=== PATIENT | female | born 1970 | race Caucasian/White ===

== ENCOUNTER 2023-06-20 09:25 | Outpatient (CLI) | payer SELFPAY ==
--- NOTE | 2023-06-19 | IMM_PTH ---
PATIENT: NEHEMIAH WOLFF LOC: [facility] U#:[id number] AGE/SX: 53/F ROOM: RE06/20/[address]: Dr. Maxine Rosas MD : 1970 BED: DIS: 06/20/2023 SPEC #: [id number] RECD: 06/21/23 12:54 STATUS: DANIA REQ #: [id number] EMMANUEL: 06/19/23 00:[address]: Maxine Rosas DEPT: IMMUNOHISTOCHEMISTRY RECD BY: Nayla Villa ENTERED: 06/21/23 13:02 SP TYPE: IMMUNO OTHR DR: April Schuster PA-C Tissues: A - Breast, NOS B - Breast, NOS C - Axillary lymph node, NOS Procedures: CALPONIN-1 (add) CK5-6 (add) CK8 (add) BRIGHT-2 (add) E-CAD (add) HER2 BERNADETTE (add) KI-67 (add) MAMM (add) P53 (add) MI (add) GATA3 (add) P40 (add) ER (initial) PHYSICIAN & [address] [address] SPECIMEN INFORMATION: Tissue Source: A - Right breast mass at 12 o'clock, 7.0 cm from nipple, B - Right breast mass at 12 o'clock, 8.0 cm from nipple, C - Right axillary lymph node Clinical Info: Right breast mass Specimen Number: [id number] A-C CPT code: 80221 x3, 24878 x16, 07045 x8 METHODOLOGY: Deparaffinized sections of prefer/formalin-fixed tissue or PAP/DQ stained slides are incubated with monoclonal/polyclonal antibodies/oligonucleotide probes. Localization is made via biotin free immunoperoxidase method. Appropriate controls are performed and reacted as expected. Results on target cell population are indicated in the following table: RESULTS: ANTIBODY / CLONE RESULT Block A P53 (DO-7) positive, wild type Ki-67 (30-9) positive, 35% CK5-6 (D5 & 1684) negative Calponin-1 (DN976A) negative P40 (BC28) negative E-Cad (ECH-6) positive BRIGHT-2 (SP21) positive CK8 (74cunrB36) positive MORPHOMETRIC ANALYSIS ER (clone 6F11) 90%, strong intensity MI (clone 16/1E2) 0 Her-2Neu (clone CB11) 3+ Block B P53 (DO-7) negative, null pattern Ki-67 (30-9) positive, 35% CK5-6 (D5 & 1684) negative Calponin-1 (CJ566P) negative P40 (BC28) negative E-Cad (ECH-6) positive BRIGHT-2 (SP21) positive, dim CK8 (04xrpnE18) positive MORPHOMETRIC ANALYSIS ER (clone 6F11) 50%, dim intensity MI (clone 16/1E2) 0 Her-2Neu (clone CB11) 3+ Block C ER (6F11) positive MI (1E2) negative CK8 (80fkwiH93) positive Mammaglobin (31A5) negative GATA3 (L50-823) positive The prognostic test for HER2 is performed on formalin-fixed paraffin embedded tissue. A 3+ (positive) staining pattern is defined as intense, homogeneous, complete, circumferential membranous staining in >10% of contiguous tumor cells. A similar weak (2+) staining pattern is interpreted as equivocal. DUANE follow-up testing is recommended for all equivocal cases. Positivity/negativity for ER/MI is reported if > or < 1% of the tumor cells are immuno- reactive, respectively. The ASCO/CAP criteria is used for scoring. Reference: Journal of Clinical Oncology, 2013; 31:4741-3533 & 2010; 16:3082-6216. Ischemic time: Less than one hour. Duration of fixation: 37 Hours; Sample Adequate: Yes. These assays have not been validated on decalcified tissues. Results should be interpreted with caution given the likelihood of false negativity on decalcified specimens or fixation greater than 72 hours. Alternative testing methods (FISH/dualISH for Her2; gene expression for ER) are recommended, if applicable. Please notify the laboratory if additional testing is required. These tests were developed and their performance characteristics determined by [facility]. They may not have been cleared or approved by the [place]. Food and Drug Administration. The FDA has determined that such clearance or approval is not necessary. The above immunohistochemical/dualISH markers are ordered and reviewed by the Pathologist. INTERPRETATION: A. Right breast mass at 12 o'clock, 7.0 cm from nipple, core biopsy: Invasive ductal carcinoma, nuclear grade 2-3/3. Positive for estrogen receptors (favorable prognostic indicator). Negative for progesterone receptors (unfavorable prognostic indicator). Positive for overexpression of TKG3hqb. B. Right breast mass at 12 o'clock, 8.0 cm from nipple, core biopsy: Invasive ductal carcinoma, nuclear grade 2-3/3. Positive for estrogen receptors (favorable prognostic indicator). Negative for progesterone receptors (unfavorable prognostic indicator). Positive for overexpression of GQR7wdq. C. Right axillary lymph node, core biopsy: Metastatic breast carcinoma. AM:pete 06/24/2023
--- NOTE | 2023-06-19 16:00 | BRBX_PTH ---
PATIENT: NEHEMIAH WOLFF LOC: [facility] U#:[id number] AGE/SX: 53/F ROOM: RE06/20/[address]: Dr. Maxine Rosas MD : 1970 BED: DIS: 06/20/2023 SPEC #: [id number] RECD: 06/19/23 16:59 STATUS: DANIA [facility] #: [id number] EMMANUEL: 06/19/23 16:[address]: Maxine Rosas DEPT: SURGICAL PATHOLOGY RECD BY: Candy Mckenzie ENTERED: 06/20/23 13:02 SP TYPE: BREAST BX OTHR DR: April Schuster PA-C Tissues: A - Right breast, NOS B - Right breast, NOS C - Axillary lymph node, NOS Procedures: Surgery Specimen Level IV HEADER OPERATION: Right breast biopsy, right axillary biopsy PRE-OP DIAGNOSIS: TISSUE SUBMITTED: A - Right breast mass 12 o'clock, 7.0 cm from nipple, B - Right breast mass 12 o'clock, 8.0 cm from nipple, C - Right axilla lymph node MICROSCOPIC DIAGNOSIS A. Right breast mass at 12 o'clock, 7.0 cm from nipple, core biopsy: Invasive ductal carcinoma with the follow characteristics: Nuclear grade - 2-3 Maximal length - 9.5 millimeters See comment. B. Right breast mass at 12 o'clock, 8.0 cm from nipple, core biopsy: Invasive ductal carcinoma with the follow characteristics: Nuclear grade - 2-3 Maximal length - 8.0 millimeters See comment. C. Right axillary lymph node, core biopsy: Metastatic breast carcinoma. See comment. AM:pete 06/24/2023 COMMENT A-C. Immunohistochemistry ([id number]) supports the above diagnosis. MICROSCOPIC DESCRIPTION Slides are reviewed. GROSS DESCRIPTION A - Received in fixative is one container labeled with the patient name and designated right breast 12 o'clock. The specimen consists of two cores of light jenkins soft tissue. Each core has an average length of 1.5 cm and average diameter of 0.1 cm. The specimen is totally submitted in one cassette. B - Received in fixative is one container labeled with the patient name and designated right breast mass 12 o'clock. The specimen consists of two cores of light jenkins soft tissue. Each core has an average length of 1.2 cm and average diameter of 0.2 cm. The specimen is totally submitted in one cassette. C - Received in fixative is one container labeled with the patient's name and designated right axilla lymph node. The specimen consists of multiple irregular and elongated fragments of jenkins-yellow soft tissue that in aggregate measure 1.0 x 0.5 x 0.1 cm. The specimen is totally submitted in one cassette. / AM:pete 06/20/2023 TC:0 Ischemic Time: 1 minute Fixation Time: 37 hours CPT: 22789 x3 ADDENDUM ADDENDUM ADDENDUM ADDENDUM ADDENDUM ADDENDUM ADDENDUM ADDENDUM ADDENDUM ADDENDUM ADDENDUM ADDENDUM ADDENDUM ADDENDUM 09/09/2023 09:14 ADDENDUM 09/09/2023 09:14 ADDENDUM 09/09/2023 09:14 ADDENDUM 09/09/2023 09:14 ADDENDUM 09/09/2023 09:14 This addendum is added to incorporate an outside pathology consultation report. The case was examined at [facility] (#[id number]) and the following diagnosis was rendered. A. Right breast mass, 12 o'clock, 7.0 cm from nipple, core biopsy: Invasive ductal carcinoma. B. Right breast mass, 12 o'clock, 8.0 cm from nipple, core biopsy: Invasive ductal carcinoma. C. Right axillary lymph node, core biopsy: Metastatic breast carcinoma, measuring at least 4 mm. Please see complete above mentioned consultation report in EMR
== END 2023-06-20 23:59 | disposition home or self-care (01) ==
LOC: LABSPEC 09:30
PROVIDERS: PCP Family Medicine; Visit Provider Surgery
DX: C50.811 Malignant neoplasm of overlapping sites of right female breast (principal); C77.3 Secondary and unspecified malignant neoplasm of axilla and upper limb lymph nodes
CPT/HCPCS: 88305; 88341; 88342

== ENCOUNTER → 2023-07-02 | Outpatient (CLI) | payer SELFPAY ==
--- NOTE | 2023-07-02 07:25 | MRI_ITS ---
STUDY: BILATERAL BREAST MR WITHOUT AND WITH CONTRAST REASON FOR EXAM: Female, 53 years old. Right breast masses on ultrasound and mammogram. TECHNIQUE: Multi-sequence multi-echo imaging of both breasts was performed with a dedicated breast coil. T1-weighted and T2-weighted images were performed before the administration of contrast. T1-weighted images were also performed after the intravenous 23 cc of Clariscan contrast. COMPARISON: Right ultrasound-guided biopsy images dated June 19, 2023, right breast ultrasound dated June 14, 2023 and bilateral diagnostic mammogram dated June 14, 2023. FINDINGS: RIGHT BREAST: Scattered fibroglandular densities with moderate background enhancement. Extensive area of enhancement in the upper half of the right breast including multiple small masslike areas and significant non--mass enhancement measuring approximately 4.4 cm x 4.3 cm x 5.6 cm. Area of enhancement involves both the upper medial and upper outer quadrants of the right breast. LEFT BREAST: Scattered fibroglandular densities with moderate background enhancement. No abnormal enhancing masses or areas of non-mass enhancement in the left breast. Multiple small enhancing lymph nodes in the right axilla, the largest of which is near the axillary tail and measures approximately 1 cm in widest diameter. Small non-pathologically enlarged lymph nodes of the left axilla No abnormality in the visualized regions of the chest or liver. MRI/Breast Bilateral W/O and W IMPRESSION: Extensive area of enhancement in the upper half of the right breast extending from both the upper medial and upper lateral quadrants. Multiple briskly enhancing lymph nodes in the right axilla as described. No abnormality of the left breast or axilla. CATEGORY: BIRADS Category 6: Known Biopsy-Proven Malignancy - Appropriate Action Should Be Taken. A letter regarding these results will be sent to the patient by the facility within 30 days. Electronically Signed: Abdiel Lawrence MD at 11:38 EST ,
== END | disposition home or self-care (01) ==
PROVIDERS: PCP Family Medicine; Referring Provider Surgery; Visit Provider Surgery
DX: N63.10 Unspecified lump in the right breast, unspecified quadrant (principal)
CPT/HCPCS: 77049; A9575; A4216; C8908

== ENCOUNTER 2023-07-18 07:02 | Day surgery (SDC) | payer SELFPAY ==
--- OUTSIDE RECORDS SUMMARY | 2023-07-18 07:06 | XMS RPT_ITS | CCD ---
Author Name Unknown Address [address] [place] [address] Organization [facility] Care Team Providers Care Car Distributor Name Role Phone Unavailable Primary Care Provider ADELAIDE Blankenship Attending Unavailable ADELAIDE SCHUSTER Primary Care Unavailable ADELAIDE SCHUSTER Admitting Unavailable ISAMAR ANGELA Consulting Unavailable PROVIDER, UNKNOWN Consulting Unavailable Alison GILLIS, Maxine Thomas Unavailable [phone] Adelaide Schuster PA-C Unavailable MAGDIEL REDDING Referring Unavailable RADHA BALDERAS Referring Unavaila ble MAGDIEL REDIDNG Attending Unavailable Medications Current Medications Medication Drug Class(es) Dates Sig (Normalized) Sig (Original) iv contrast (will be provided with radiology test) (1 source) Start: 07-10-2023 End: 07-11-2023 inject 1 dose intravenously once iv contrast (will be provided with radiology test) Indications: Malignant 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 in female, estrogen receptor positive (HCC) (HCC) , HER2-positive carcinoma of breast (HCC) , Encounter for monitoring cardiotoxic drug therapy , 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 If Pt. has a central line or IVAD, may access for administration according to line specific nursing protocol.Once exam is complete flush line and de-access according to line specific nursing protocol in the MR contrast administration guidelines link 1 Each 0 07/10/2023 07/11/2023 Active Completed/Discontinued Medications Medication Drug Class(es) Dates Sig (Normalized) Sig (Original) OTC PRODUCT (1 source) take 2 capsules by m outh once daily OTC PRODUCT Take 2 capsules by mouth once daily. Activated Charcoal 0 Active Problems Problem Classification Problem Date Documented Da te Episodic/Chronic Cancer of breast (4 sources) Overlapping malignant neoplasm of female breast; Translations: [Malignant neoplasm of overlapping sites of right female breast] Onset: 07-10-2023 07-10-2023 Chronic Other aftercare (1 source) Drug therapy finding; Translations: [Encounter for therapeutic drug level monitoring] 07-10-2023 Episodic Other aftercare (1 source) Encounter for therapeutic drug level monitoring; Translations: [Encounter for monitoring cardiotoxic drug therapy] Onset: 07-10-2023 Episodic Other aftercare (1 source) Other termite control representative (current) drug therapy; Translations: [Encounter for monitoring cardiotoxic drug therapy] Onset: 07-10-2023 Episodic Other screening for suspected conditions (not mental disorders or infectious disease) (3 sources) Other abnormal and inconclusive findings on diagnostic imaging of breast; Translations: [Other abnormal and inconclusive findings on diagnostic imaging of breast] Onset: 06-14-2023 Episodic Residual codes; unclassified (1 source) Estrogen receptor positive status [ER+]; Translations: [Malignant 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 in female, estrogen receptor positive (HCC) (HCC)] Onset: 07-10-2023 Episodic Secondary malignancies (1 source) Secondary malignant neoplasm of axillary lymph nodes; Translations: [Secondary and unspecified malignant neoplasm of axilla and upper limb lymph nodes] 07-10-2023 Chronic Secondary malignancies (1 source) Secondary and unspecified malignant neoplasm of axilla and upper limb lymph nodes; Translations: [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)] Onset: 07-10-2023 Chronic Results Test Name Value Interpretation Reference Range Facil ity Vital Signs Date Time Vital Sign Value Performing Clinician Mitesh nolan 07-10-2023 14:44-0500 Body height 164.7 cm Magdiel [employer] Work Phone: [facility] 07-10-2023 14:44-0500 Body temperature 97.7 [degF] Magdiel [employer] DO Work Phone: [facility] 07-10-2023 14:44-0500 Body weight 114.31 kg Magdiel PopUp Work Phone: [facility] 07-10-2023 14:44-0500 Diastolic blood pressure 87 mm[Hg] Magdiel Redding DO Work Phone: [facility] 07-10-2023 14:44-0500 Heart rate 75 /min Magdiel Redding DO Work Phone: [facility] 07-10-2023 14:44-0500 SaO2% (BldA) [Mass fraction] 99 % Magdiel Redding DO Work Phone: [facility] 07-10-2023 14:44-0500 Systolic blood pressure 150 mm[Hg] Magdiel Redding DO Work Phone: [facility] Encounters Encounter Date Encounter Type Care Provider Facility Start: 07-10-2023 End: 07-11-2023 ambulatory Magdiel Redding DO Work Phone: Hematology/Oncology Procedures Date Procedure Procedure Detail Performing Clinician Start: 03-21-2011 SURGICAL PATHOLOGY, CONVERTED Mauricio Trinh MD Work Phone: Start: 07-27-2008 SURGICAL PATHOLOGY, CONVERTED Danilo Han MD Work Phone: Start: 06-29-2008 CYTOLOGY FLASH DRIER OPERATOR, CONVERTED Danilo Han MD Work Phone: Start: 10-02-2005 CYTOLOGY FLASH DRIER OPERATOR, CONVERTED Danilo Han MD Work Phone: Plan of Treatment Date Care Activity Detail Author Start: 07-10-2026 Diabetes Screening Diabetes Screening [facility] Start: 03-22-2023 Influenza vaccination [facility] Start: 07-22-2022 Depression Assessment Depression Assessment [facility] Start: 01-23-2022 Shingrix Vaccine (1 of 2) Shingrix Vaccine (1 of 2) [facility] Start: 01-23-2017 Lipid panel Lipid Screening [facility] Start: 01-23-2017 Screening for malignant neoplasm of colon [facility] Start: 2012 Screening for malignant neoplasm of breast Mammogram Screening [facility] Start: 01-23-2002 Screening for malignant neoplasm of cervix HPV Testing [facility] Start: 01-23-1993 Screening for malignant neoplasm of cervix Pap Testing [facility] Start: 01-23-1991 Urine microalbumin profile DTaP,Tdap,Td Vaccine (1 - Tdap) [facility] Start: 01-23-1990 HIV screening HIV Screening [facility] Start: 1972 Covid-19 Vaccine (#1) Covid-19 Vaccine (#1) [facility] Start: 1972 Hepatitis B Vaccine (1 of 3 - 3-dose series) Hepatitis B Vaccine (1 of 3 - 3-dose series) [facility] End: 07-10-2024 Echocardiography ECHO Cardiology STAT Malignant 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 in female, estrogen receptor positive (HCC) (HCC) HER2-positive carcinoma of breast (HCC) Encounter for monitoring cardiotoxic drug therapy 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 1972 Unknown [id number] Social History Date Type Detail Facility Tobacco smoking stat [facility] Tobacco smoking consumption unknown [facility] Start: 1970 Sex Assigned At Not on file [facility] Start: 07-02-2023 End: 07-10-2023 Gender identity Not on file [facility] Start: 07-10-2023 Tobacco smoking stat [facility] Never smoked tobacco [facility] Start: 07-10-2023 Tobacco use and exposure Smokeless t obacco non-user [facility] Start: 07-10-2023 Alcohol intake Current drinke r of alcohol (finding) [facility] Start: 07-02-2023 End: 07-10-2023 History of Social function [facility] National Score (1-10 0), lower number is lower risk 32 [facility] Start: 07-10-2023 Alcohol Comment rare [facility] Progress note 07-10-2023 Note Date & Type Note Facility 07-10-2023 Note HNO ID: [id number] Author: Magdiel Redding, DO Service: ? Author Type: Physician Type: Progress Notes Filed: 07/10/2023 6:16 PM Note Text: Patient referred by Dr. Rosas for breast cancer. The impression and plan will be communicated by way of the shared electronic record or faxed under separate cover letter. HPI: The patient is a 53 yo female with no significant PMH who noticed discoloration of her right breast. Noticed light pink-purple discoloration medial right breast about a month prior to evaluation. Had bilateral diagnostic mammogram 06/14/2023. There was a mass in the right breast characterized by spiculated suspicious morphology, mid breast at 12 o'clock position measuring 11 x 11 x 28 mm. Associated pleomorphic calcifications were present. In the left breast there was a focal asymmetry characterized by benign circumscribed morphology, mid breast depth 4 o'clock position 3 x 4 x 6 mm. Ultrasound of the right breast done the same day demonstrated a solid suspicious appearing lesion in the 12:00 mid breast depth position composed of 2 juxtaposed nodules measuring 8 x 8 x 12 and 9 x 9 x 8 mm in size. Biopsy 06/19/2023. Pathology: A. Right breast mass at 12 o?clock, 7.0 cm from nipple, core biopsy: Invasive ductal carcinoma with the follow characteristics: Nuclear grade - 2-3 Maximal length - 9.5 millimeters See comment. B. Right breast mass at 12 o?clock, 8.0 cm from nipple, core biopsy: Invasive ductal carcinoma with the follow characteristics: Nuclear grade - 2-3 Maximal length - 8.0 millimeters See comment. C. Right axillary lymph node, core biopsy: Metastatic breast carcinoma. Block A P53 (DO-7) positive, wild type Ki-67 (30-9) positive, 35% CK5-6 (D5 AND 1684) negative Calponin-1 (QU767Y) negative P40 (BC28) negative E-Cad (ECH-6) positive BRIGHT-2 (SP21) positive CK8 (35eujmY43) positive MORPHOMETRIC ANALYSIS ER (clone 6F11) 90%, strong intensity OK (clone 16/1E2) 0 Her-2Neu (clone CB11) 3+ Block B P53 (DO-7) negative, null pattern Ki-67 (30-9) positive, 35% CK5-6 (D5 AND 1684) negative Calponin-1 (GA046B) negative P40 (BC28) negative E-Cad (ECH-6) positive BRIGHT-2 (SP21) positive, dim CK8 (65omfqX07) positive MORPHOMETRIC ANALYSIS ER (clone 6F11) 50%, dim intensity OK (clone 16/1E2) 0 Her-2Neu (clone CB11) 3+ Block C ER (6F11) positive OK (1E2) negative CK8 (83eafuC64) positive Mammaglobin (31A5) negative GATA3 (L50-823) positive Breast MRI 07/02/2023: RIGHT BREAST: Scattered fibroglandular densities with moderate background enhancement. Extensive area of enhancement in the upper half of the right breast including multiple small masslike areas and significant non--mass enhancement measuring approximately 4.4 cm x 4.3 cm x 5.6 cm. Area of enhancement involves both the upper medial and upper outer quadrants of the right breast. LEFT BREAST: Scattered fibroglandular densities with moderate background enhancement. No abnormal enhancing masses or areas of non-mass enhancement in the left breast. Multiple small enhancing lymph nodes in the right axilla, the largest of which is near the axillary tail and measures approximately 1 cm in widest diameter. Small non-pathologically enlarged lymph nodes of the left axilla No abnormality in the visualized regions of the chest or liver. IMPRESSION: Extensive area of enhancement in the upper half of the right breast extending from both the upper medial and upper lateral quadrants. Multiple briskly enhancing lymph nodes in the right axilla as described. No abnormality of the left breast or axilla. History reviewed. No pertinent past medical history. PAST SURGICAL HISTORY Procedure Laterality Date SECTION SINGLE 12/1994 SECTION SINGLE 10/2002 REMOVAL GALLBLADDER 2012 TOTAL ABDOM HYSTERECTOMY 08/2008 TOTAL KNEE REPLACEMENT Bilateral 02/2020 Hysterectomy and BSO for uterine cyst and endometriosis. ALLERGIES No Known Allergies Current Outpatient Medications Medication Sig OTC PRODUCT Take 2 capsules by mouth once daily. Activated Charcoal No current facility-administered medications for this visit. Social History Tobacco Use Smoking status: Never Smokeless tobacco: Never Vaping Use Vaping Use: Never used Substance Use Topics Alcohol use: Yes Comment: rare Drug use: Never Family History Problem Relation Age of Onset No Known Problems Mother Heart Attack Father No Known Problems Sister No Known Problems Sister No Known Problems Brother No Known Problems Brother No Known Problems Brother No Known Problems Brother No Known Problems Brother No Known Problems Brother No Known Problems Brother Heart Maternal Grandmother Heart Maternal Grandfather No family h/o cancer. OBSTETRIC RELATED HISTORY: History Breast Feeding: Yes. Age at of First Child: 24. Age at Onset of Menses: 10-11 years o (more content not included)... [facility] History of Present illness Narrative 07-10-2023 Magdiel Redding - 07/10/2023 3:18 PM EST Note Date & Type Note Facility 07-10-2023 History of Presen t illness Narrative Patient referred by Dr. Rosas for breast cancer. The impression and plan will be communicated by way of the shared electronic record or faxed under separate cover letter. HPI: The patient is a 53 yo female with no significant PMH who noticed discoloration of her right breast. Noticed light pink-purple discoloration medial right breast about a month prior to evaluation. Had bilateral diagnostic mammogram 06/14/2023. There was a mass in the right breast characterized by spiculated suspicious morphology, mid breast at 12 o'clock position measuring 11 x 11 x 28 mm. Associated pleomorphic calcifications were present. In the left breast there was a focal asymmetry characterized by benign circumscribed morphology, mid breast depth 4 o'clock position 3 x 4 x 6 mm. Ultrasound of the right breast done the same day demonstrated a solid suspicious appearing lesion in the 12:00 mid breast depth position composed of 2 juxtaposed nodules measuring 8 x 8 x 12 and 9 x 9 x 8 mm in size. Biopsy 06/19/2023. Pathology: A. Right breast mass at 12 o clock, 7.0 cm from nipple, core biopsy: Invasive ductal carcinoma with the follow characteristics: Nuclear grade - 2-3 Maximal length - 9.5 millimeters See comment. B. Right breast mass at 12 o clock, 8.0 cm from nipple, core biopsy: Invasive ductal carcinoma with the follow characteristics: Nuclear grade - 2-3 Maximal length - 8.0 millimeters See comment. C. Right axillary lymph node, core biopsy: Metastatic breast carcinoma. Block A P53 (DO-7) positive, wild type Ki-67 (30-9) positive, 35% CK5-6 (D5 & 1684) negative Calponin-1 (XT038P) negative P40 (BC28) negative E-Cad (ECH-6) positive BRIGHT-2 (SP21) positive CK8 (71wjxwC13) positive MORPHOMETRIC ANALYSIS ER (clone 6F11) 90%, strong intensity OK (clone 16/1E2) 0 Her-2Neu (clone CB11) 3+ Block B P53 (DO-7) negative, null pattern Ki-67 (30-9) positive, 35% CK5-6 (D5 & 1684) negative Calponin-1 (AJ394P) negative P40 (BC28) negative E-Cad (ECH-6) positive BRIGHT-2 (SP21) positive, dim CK8 (19gomyU45) positive MORPHOMETRIC ANALYSIS ER (clone 6F11) 50%, dim intensity OK (clone 16/1E2) 0 Her-2Neu (clone CB11) 3+ Block C ER (6F11) positive OK (1E2) negative CK8 (06jdbjG25) positive Mammaglobin (31A5) negative GATA3 (Q80823) positive Breast MRI 07/02/2023: RIGHT BREAST: Scattered fibroglandular densities with moderate background enhancement. Extensive area of enhancement in the upper half of the right breast including multiple small masslike areas and significant non--mass enhancement measuring approximately 4.4 cm x 4.3 cm x 5.6 cm. Area of enhancement involves both the upper medial and upper outer quadrants of the right breast. LEFT BREAST: Scattered fibroglandular densities with moderate background enhancement. No abnormal enhancing masses or areas of non-mass enhancement in the left breast. Multiple small enhancing lymph nodes in the right axilla, the largest of which is near the axillary tail and measures approximately 1 cm in widest diameter. Small non-pathologically enlarged lymph nodes of the left axilla No abnormality in the visualized regions of the chest or liver. IMPRESSION: Extensive area of enhancement in the upper half of the right breast extending from both the upper medial and upper lateral quadrants. Multiple briskly enhancing lymph nodes in the right axilla as described. No abnormality of the left breast or axilla. History reviewed. No pertinent past medical history. PAST SURGICAL HISTORY Procedure Laterality Date SECTION SINGLE 12/1994 SECTION SINGLE 10/2002 REMOVAL GALLBLADDER 2011 TOTAL ABDOM HYSTERECTOMY 08/2008 TOTAL KNEE REPLACEMENT Bilateral 02/2020 Hysterectomy and BSO for uterine cyst and endometriosis. ALLERGIES No Known Allergies Current Outpatient Medications Medication Sig OTC PRODUCT Take 2 capsules by mouth once daily. Activated Charcoal No current facility-administered medications for this visit. Social History Tobacco Use Smoking status: Never Smokeless tobacco: Never Vaping Use Vaping Use: Never used Substance Use Topics Alcohol use: Yes Comment: rare Drug use: Never Family History Problem Relation Age of Onset No Known Problems Mother Heart Attack Father No Known Problems Sister No Known Problems Sister No Known Problems Brother No Known Problems Brother No Known Problems Brother No Known Problems Brother No Known Problems Brother No Known Problems Brother No Known Problems Brother Heart Maternal Grandmother Heart Maternal Grandfather No family h/o cancer. OBSTETRIC RELATED HISTORY: History Breast Feeding: Yes. Age at of First Child: 24. Age at Onset of Menses: 10-11 years of age. Age at Menopause: 39 (surgical) years of age. Ovaries: Removed. Uterus: Hysterectomy. First child stillborn. Two miscarriages--both around 7 weeks. Two children. Exogenous Hormone Use/HRT: None. Oral Contraceptives: 1 year. ROS: Constitutional: No fever. No drenching night sweats. Normal appetite. No unexplained weight loss. No significant fatigue. Neuro: No recent MCKEON, vertigo, dizziness or imbalance. No symptoms of sensory neuropathy. HEENT: No recent change in voice, vision or hearing. Resp: No cough, wheeze of hemoptysis. No shortness of breath at rest. No BEVERLY. CVS: No exertional chest pain, PND or orthopnea. No extremity swelling/edema. No symptoms of claudication. No painful or tender varicose veins. GI: No dysgeusia. No symptoms of stomatitis. No dysphagia or odynophagia. No reflux, n/v, change in bowel habits. No abdominal pain, bloating or distension. No black or bloody stools. : No dysuria or gross hematuria. No symptoms of bladder outlet obstruction. Endo: No hot flashes. No polyuria or polydipsia. No heat or cold intolerance. Musculoskeletal: No bone, back, joint and muscular pain. Derm: No current rash. No history of jaundice. No diffuse pruritis. Heme: No unusual bleeding and unexplained bruising. Psych: Normal mood. PHYSICAL EXAM: Vitals: Blood pressure 150/87, pulse 75, temperature 36.5 C (97.7 F), height 164.7 cm (5' 4.86 ), weight 114.3 kg (252 lb), SpO2 99%. Well-appearing and in no acute distress. EYES: Sclerae are anicteric bilaterally. LYMPHATIC: There is no palpable cervical or supraclavicular adenopathy. RESPIRATORY: Inspiratory breath sounds are of normal intensity in all collier. No rales, wheezes or rhonchi. Expiratory phase is normal. CARDIOVASCULAR: Rhythm is regular. BREAST: chaperoned. The right breast is larger than the left. There is a diffuse area of ecchymosis in the upper central and outer quadrant of the breast. The medial portion of the breast has peau d'orange. There is a mobile mass in the 11 o'clock position measuring approximately 5 to 6 cm. Not able to palpate right axillary adenopathy. ABDOMEN: The abdomen is nondistended. No splenomegaly or hepatomegaly. No tenderness. Extremities: No swelling or edema. SKIN: Faint residual rash right upper quadrant from tape used to apply charcoal treatment. 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 Clinical stage IIIA invasive ductal carcinoma of the right breast. -Discussed that further staging imaging indicated. -Recommended neoadjuvant therapy with TCHP. -I discussed the rationale, logistics, potential risks (including but not limited to alopecia, cytopenias, nausea and vomiting, diarrhea, neuropathy, cardiomyopathy, fatigue, rash, infectious complications and the small potential for as a consequence of severe toxicity/complications of therapy), benefits and alternatives, as well as the personnel involved in the administration of TCHP. I answered her questions in detail and she verbalized understanding and agreed with the recommended therapy. Please see the electronic consent document for details of doses and schedule. Plan: -PET scan. -MRI brain. -Echocardiogram. -Port placement. -CBC, CMP and hepatitis remote panel today. -Chemotherapy teaching. -Anticipate starting treatment week after next. Activity Duration Exam room 25 minutes Exam room 9 minutes Chart accessed 7 minutes Chart accessed 5 minutes Chart accessed 9 minutes Current session < 1 minute Total time: 57 minutes I spent a total of >60 minutes on the date of the service which included preparing to see the patient, [id number] patient care, completing clinical documentation, obtaining and/or reviewing separately obtained history, performing a medically appropriate examination, counseling and educating the patient/family/caregiver, ordering medications, tests, or procedures, communicating with other HCPs (not separately reported), independently interpreting results (not separately reported), and communicating results to the patient/family/caregiver. Magdiel Redding DO documented in this encounter [facility] Evaluation note Note Date & Type Note Facility documented in this encounter [facility] Reason for referral (narrative) Outpatient Procedure (Urgent) - Authorized Note Date & Type Note Facility Referral ID Status Reason Start Date Expiration Date Visits Requested Visits Authorized [id number] Authorized Auto-Generate d Referral Financial Clearance Required - Self Pay Patient Cleared - [facility] 3 07/09/2024 1 1 * MRI/CT (Urgent) - Authorized Specialty Diagnoses / Procedures Referred By Contac t Referred To Contact MR IMAGING Diagnoses Malignant 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 in female, estrogen receptor positive (HCC) (HCC) HER2-positive carcinoma of breast (HCC) Encounter for monitoring cardiotoxic drug therapy 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) Procedures MRI BRAIN WO/W IVCON MRI BRAIN BRAIN STEM W/O W/CONTRAST MATERIAL Magdiel Redding DO [address] [place] [address] [place] [address] Referral ID Status Reason Start Date Expiration Date Visits Requested Visits Authorized [id number] Authorized Auto-Generate d Referral Financial Clearance Required - Self Pay Patient Cleared - [facility] 3 08/08/2024 1 1 * Diagnostic Procedure Only (Routine) - Authorized Specialty Diagnoses / Procedures Referred By Contac t Referred To Contact MOLECULAR & FUNCTIONAL IMAGING Diagnoses Malignant 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 in female, estrogen receptor positive (HCC) (HCC) HER2-positive carcinoma of breast (HCC) Encounter for monitoring cardiotoxic drug therapy 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) Procedures NM PET/CT SKULL-THIGH INITIAL PET IMAGING CT ATTENUATION SKULL BASE MID-THIGH Magdiel Redding DO [address] [place] [address] Molecular & Functional Imaging [address] [place] [address] Referral ID Status Reason Start Date Expiration Date Visits Requested Visits Authorized [id number] Authorized Auto-Generate d Referral Financial Clearance Required - Self Pay Patient Cleared - [facility] 3 08/08/2024 1 1 [facility] Summary Purpose Family History No Family History Records FoundNo Family History Records FoundNo Family History Records Found Advance Directives No Advanced Directives Records FoundNo Advanced Directives Records FoundNo Advanced Directives Records Found Additional Source Comments INFORMATION SOURCE (unrecogn ized section and content) DATE CREATED AUTHOR AUTHOR'S ORGANIZ ATION 06/18/2023 [facility] DATE CREATED AUTHOR AUTHOR'S ORGANIZ ATION 07/13/2023 [facility] Source Comments (unrecognize d section and content) In the event this informatio n is protected by the Federal Confidentiality of Alcohol and Drug Abuse Patient Records regulations: The Federal rules restrict any use of the information to criminally investigate or prosecute any alcohol or drug abuse patient.[facility] the event this information is protected by the Federal Confidentiality of Alcohol and Drug Abuse Patient Records regulations: The Federal rules restrict any use of the information to criminally investigate or prosecute any alcohol or drug abuse patient.[facility] the event this information is protected by the Federal Confidentiality of Alcohol and Drug Abuse Patient Records regulations: The Federal rules restrict any use of the information to criminally investigate or prosecute any alcohol or drug abuse patient.[facility] the event this information is protected by the Federal Confidentiality of Alcohol and Drug Abuse Patient Records regulations: The Federal rules restrict any use of the information to criminally investigate or prosecute any alcohol or drug abuse patient.[facility] Hospital[facility] the event this information is protected by the Federal Confidentiality of Alcohol and Drug Abuse Patient Records regulations: The Federal rules restrict any use of the information to criminally investigate or prosecute any alcohol or drug abuse patient.[facility] Reason for Visit (unrecogniz ed section and content) Specialty Diagnoses / Procedures Referred By Contac t Referred To Contact HEMATOLOGY/ONCOLOGY Diagnoses Brest Cancer Procedures NEW PATIENT VISIT LEVEL 1 OFFICE/OUTPATIENT NEW MODERATE MDM 45-59 MINUTES Radha Balderas MD [address] [place] [address] [facility] [address] [place] [address] Referral ID Status Reason Start Date Expiration Date V isits Requested Visits Authorized [id number] Closed Financial Clearance Required - Self Pay Patient Cleared - [facility] 07/01/2023 09/29/2023 1 1 Care Teams (unrecognized sec tion and content) FOR RECORDS PERTAINING TO PATIENTS WHO ARE OR HAVE BEEN ENROLLED IN A CHEMICAL DEPENDENCY/SUBSTANCEABUSE PROGRAM, SOME INFORMATION MAY BE OMITTED. This clinical summary was aggregated from multiple sources. Caution should be exercised in using it in the provision of clinical care. This summary normalizes information from multiple sources, and as a consequence, information in this document may materially change the coding, format and clinical context of patient data. In addition, data may be omitted in some cases. CLINICAL DECISIONS SHOULD BE BASED ON THE PRIMARY CLINICAL RECORDS. [employer] provides no warranty or guarantee of the accuracy or completeness of information in this document.
[2023-07-18 07:37] VITALS: BP 146/96; PULSE 72; RESP 16; TEMP 36.6; O2SAT 100; BMI 41.4
--- NOTE | 2023-07-18 08:04 | PCM.HP.STD ---
HPI - General General Date of Service: 07/18/23 HPI Narrative NEHEMIAH WOLFF, is a 53 F who presents for port placement due to right breast cancer involving axillary nodes, HER2 positive. Patient will start neoadjuvant chemotherapy with Dr. Vahid COLÓN. [facility] Medical History Arthritis Back pain Cancer delivery delivered double knee surgery gall bladder surgery History of echocardiogram History of edema hysterectomy Leg cramps Migraine headache neck and back pain Non-smoker Home Medications activated charcoal 200 mg capsule 400 mg PO DAILY 07/12/23 [History Last Taken Unknown] Allergy/AdvReac Type Severity Reaction Status Date / Time adhesive tape Allergy Intermediate Rash Verified 07/18/23 07:37 Surgical History (Updated 07/12/23 @ 14:02 by Rafaela Meyer) H/O: hysterectomy History of hysteroscopy History of knee replacement Hx of cholecystectomy Social History (Updated 06/19/23 @ 15:36 by Jackie Casas) Smoking Status: Never smoker alcohol intake: never substance use type: does not use Vital Signs Vital Signs Vital Signs: 07/18/23 07:37 07/18/23 07:37 Temperature 97.8 F Temperature Source Temporal Pulse Rate 72 Respiratory Rate 16 Respiratory Pattern Normal Blood Pressure 146/96 H Blood Pressure Mean 112 Blood Pressure Source Monitor Blood Pressure Position Semi-Fowlers Pulse Ox 100 Oxygen Delivery Method Room Air Weight Weight: 249 lb 1.957 oz Body Mass Index (BMI) 41.4 Physical Exam Narrative Upper left chest normal to palpation, neck supple Const oriented x3 and no apparent distress Resp normal respiratory effort Cardio regular rate GI soft to palpation and non-tender Extremity normal to inspection Assessment & Plan Assessment/Plan (1) Encounter for insertion of venous access port: (2) Breast cancer metastasized to axillary lymph node: (3) Invasive ductal carcinoma of breast: PLAN: Plan I have discussed above with the patient- Port-a-Cath placement. Left IJ possible right Patient has been counseled as to the risks/benefits of the procedure. I have explained the risks of the surgery, including but not limited to: infection, bleeding, injury to any blood vessels/nerves, injury to lungs (such as pneumothorax or hemothorax and need for chest tube), not having any access, nonfunctioning of port due to thrombosis, infection of port, etc. the patient understands and agrees to proceed. I have answered all the patient's questions to the patient?s satisfaction and the patient has no further questions. Maxine Rosas M.D. Pager: [phone] [facility] [address] [place] [address], [facility], [address] [place] [address] Office: [phone]
[2023-07-18] MEDS: Cefazolin 2 GM in 0.9% Normal Saline (100mL Bag) 100 ML IV (08:25)
[2023-07-18] MEDS: Lidocaine 1% /Epi 1:100 (20ml) 20 ML Vial (09:06)
[2023-07-18] MEDS: Bupivacaine Mpf 0.5% 30 ML VIAL (09:06)
--- NOTE | 2023-07-18 09:11 | PCM.OPRPT ---
Report of Operation Date of Procedure: 07/18/23 Pre-Operative Diagnosis: z45.2, right breast cancer Post-Operative Diagnosis: Same Surgery/Procedure Performed:: Placement of right IJ Port-A-Cath Use of fluoroscopy Use of ultrasound Surgeon: Maxine Rosas Type of Anesthesia: Local MAC Anesthesiologist: Yogi Harvey Special Medications: Ancef 2 g IV x 1 Specimen's removed: None Estimated Blood Loss (mL): 10 cc Description of Procedure: After informed consent was given, the patient was brought to the operating room and placed in the supine position. Appropriate time out protocol was followed. Patient was then given IV conscious sedation for anesthesia. The patient's left upper chest and neck were then prepped with a surgical skin preparation and sterile surgical drapes were placed. After proper landmarks were ascertained, the skin at the upper left chest area was then infiltrated with 1:1 mixture of 1% lidocaine with epinephrine and 0.5% marcaine. A needle trocar was then inserted into the left internal jugular vein with ultrasound guidance-multiple vessels were viewed with u/s and the left IJ was chosen-- and there was good aspiration of venous blood. A wire was then threaded into the needle trocar and this was visualized under fluoroscopy to ensure that the wire was in the superior vena cava. Once this was done, then the needle trocar was removed. A small skin chani was made with an 11 blade knife at the wire entrance site. The dilator with the introducer sheath attached was then placed over the wire into the left internal jugular vein via the Seldinger technique and this was visualized under fluoroscopy. The dilator and sheath were in proper position as visualized by fluoroscopy. A subcutaneous pocket was then created caudad to the catheter insertion site. A transverse skin incision was made after the skin and subcutaneous tissues were infiltrated with local anesthetic. Blunt dissection was then used to create a space large enough for placement of the subcutaneous port. The catheter was then tunneled into the subcutaneous pocket. The wire and dilator were then removed. The catheter was then threaded into the introducer sheath and was positioned with its tip at the junction of the superior vena cava and the right atrium as visualized under fluoroscopy. The excess catheter was transected. The catheter was then attached to the subcutaneous port using manufacturers guidelines. The catheter was flushed with a heparin saline mixture prior to placement, initially did not draw well thus the catheter was shortened to allow good drying and flushing of the catheter. Hemostasis was carefully controlled with electrocautery. The port was sutured to the subcutaneous fascia using 2-0 Vicryl suture at two sites. The port was then placed in the subcutaneous pocket. The incision were reapproximated with interrupted subdermal 3-0 vicryl sutures. The skin was reapproximated with 3-0 nylon suture in a interrupted fashion. Steristrips were used for reinforcement of the skin closure at IJ insertion site and a sterile opsite dressings were applied. The patient tolerated the procedure well. Grafts/Implants Used: [employer] PowerPort isp M.[employer].I. 6Fr Lot [id number] [id number] Complications none
--- NOTE | 2023-07-18 09:17 | DCINST_ITS ---
Discharge Instructions Procedure Port-A-Cath Diet Discharge Diet: Light diet - advance as tolerated Activity May shower in (days): 5 (Keep port site clean and dry x5 days. Neck incision okay to get wet after 1 day. Okay to lower shower and upper sponge bath. OR okay to taper off port site with a Ziploc bag to shower) Lifting Restrictions: No lifting > 15 pounds for 2 days with the arm on the side of the port Dressing / Incision Call your doctor if your incision/area has: Continuous Slow Oozing, Sudden Increased Bleeding, Increased Pain/ Swelling, Increased Redness, Foul Smelling Discharge and Swelling at the incision site Call your doctor if you observe: Fever of 101 or Higher Change Dressing in: 2 days (2-3 days- port site; ok to remove neck opsite in 1 day) Follow Up Care Please Follow Up With: Maxine Rosas MD When: In 10 days for permanent suture removal?call office for appointment Test Results: Test results from this visit will be discussed in further detail at your follow- up appointment, if applicable. Discharge Plan Admission Attending Provider: Maxine Rosas Primary Care Provider: April Schuster Discharge Orders/Prescriptions Prescriptions: No Action activated charcoal 200 mg capsule 400 mg PO DAILY Referrals / Follow Up: April Schuster PA-C [Primary Care Provider] - Disposition Disposition (needs filled in before D/C Order can be placed): Home, Self Care
[2023-07-18 09:18] VITALS: BP 116/68; BP 146/96; PULSE 74; RESP 16; TEMP 36.2; O2SAT 98
[2023-07-18 09:20] VITALS: BP 132/84; BP 146/96; PULSE 69; RESP 16; O2SAT 97
--- NOTE | 2023-07-18 09:23 | RAD_ITS ---
STUDY: X-RAY CHEST REASON FOR EXAM: Female, 53 years old. Port placement. TECHNIQUE: Single frontal view of the chest. COMPARISON: None. FINDINGS: Left internal jugular catheter with tip projected over the upper SVC. Cardiomegaly, aortic tortuosity, prominent central pulmonary arteries, mild hyperinflation, linear scarring/atelectasis in the right upper lobe and left lower lobe and scattered healed parenchymal granulomatous calcifications. No complication from line placement and no acute finding. No abnormality of the visualized soft tissue structures of the upper abdomen. RAD/Chest 1 View (Portable) IMPRESSION: No active or acute cardiopulmonary disease. Electronically Signed: Abdiel Lawrnece MD at 9:38 EST ,
[2023-07-18 09:25] VITALS: BP 138/86; BP 146/96; PULSE 71; RESP 16; O2SAT 97
[2023-07-18 09:38] VITALS: BP 129/80; BP 146/96; PULSE 66; RESP 16; TEMP 36.2; O2SAT 97
[2023-07-18 10:21] VITALS: BP 146/96
== END 2023-07-18 10:33 | disposition home or self-care (01) ==
LOC: SDC 07:08 → AC 08:00
PROVIDERS: PCP Family Medicine; Referring Provider Surgery; Visit Provider Surgery
PROC: (CPT 36561; principal; 2023-07-18 08:35)
DX: Z45.2 Encounter for adjustment and management of vascular access device (principal); C77.3 Secondary and unspecified malignant neoplasm of axilla and upper limb lymph nodes; C50.911 Malignant neoplasm of unspecified site of right female breast
CPT/HCPCS: 36561; 00532; 71045; 77001; J7120; J2405

== ENCOUNTER → 2023-10-08 | Outpatient (CLI) | payer SELFPAY ==
--- NOTE | 2023-10-08 10:27 | MRI_ITS ---
STUDY: BILATERAL BREAST MR WITHOUT AND WITH CONTRAST REASON FOR EXAM: Female, 53 years old. History of breast cancer in mother. TECHNIQUE: Multi-sequence multi-echo imaging of both breasts was performed with a dedicated breast coil. T1-weighted and T2-weighted images were performed before the administration of contrast. T1-weighted images were also performed after the intravenous administration of 22 cc of Clariscan contrast. COMPARISON: Bilateral mammograms dated 06/14/2023 and right breast ultrasound dated 06/14/2023. Prior breast MRI with contrast dated 07/02/2023 FINDINGS: RIGHT BREAST: Scattered fibroglandular densities with minimal background enhancement. Area of non-mass enhancement at the 12:00 position which has substantially decreased since the comparison study of June 2023. The area of enhancement measures approximately 4.3 cm x 2.6 cm x 4.2 cm and extends from the upper medial quadrant to the upper outer quadrant. This area of enhancement may still represent persistent neoplasm. LEFT BREAST: Scattered fibroglandular densities with minimal background enhancement. No abnormal enhancing masses or areas of non-mass enhancement in the right breast. No enlarged or abnormal lymph nodes. No abnormality in the visualized regions of the chest or liver. MRI/Breast Bilateral W/O and W IMPRESSION: Substantial decreased enhancement in the 12:00 position of the right breast compared to the prior study. Persistent area of non-mass enhancement extending from the upper inner quadrant to the upper outer quadrant and measuring 4.3 cm x 2.6 cm x 4.2 cm, as outlined above. No adenopathy. CATEGORY: BIRADS Category 6: Known Biopsy-Proven Malignancy - Appropriate Action Should Be Taken. A letter regarding these results will be sent to the patient by the facility within 30 days. Electronically Signed: Abdiel Lawrence MD at 13:35 EDT ,
[2023-10-08] MEDS: 0.9 % NaCl (Sterile) Posiflush 10 mL IV (11:35)
== END | disposition home or self-care (01) ==
LOC: MRI 10:25
PROVIDERS: PCP Family Medicine; Referring Provider Internal Medicine Hematology & Oncology; Visit Provider Internal Medicine Hematology & Oncology
DX: C50.811 Malignant neoplasm of overlapping sites of right female breast (principal); C77.3 Secondary and unspecified malignant neoplasm of axilla and upper limb lymph nodes
CPT/HCPCS: 77049; A9575; A4216; C8908

== ENCOUNTER → 2024-02-27 | Outpatient (CLI) | payer SELFPAY ==
--- NOTE | 2024-02-27 13:57 | ECHOL_ITS ---
Reason For Study: CARDIOTOXICITY EVAL Procedure This was a limited 2D transthoracic echocardiogram. Myocardial strain analysis was performed in this exam to aid in the assessment of cardiac function. Exam performed in department. Left Ventricle Normal LV size. The estimated ejection fraction is 60 %. No regional wall motion abnormalities noted. Right Ventricle Normal RV size. Normal systolic function. Mitral Valve There is no mitral valve stenosis. Tricuspid Valve There is no tricuspid stenosis. Aortic Valve Trisinus/trileaflet aortic valve. There is no aortic stenosis. Pericardium/Pleural No pericardial effusion. MMode/2D Measurements & Calculations LVIDd: 4.5 cm IVSd: 1.3 cm LAV(MOD-bp): 39.6 ml LVIDs: 2.3 cm LVPWd: 1.0 cm FS: 50.2 % LAV(MOD-bp) Indexed: 18.5 ml/m2 LAV(MOD-sp2): 39.5 ml LAV(MOD-sp4): 35.5 ml LVAd ap4: 28.1 cm2 SV(MOD-sp4): 44.9 ml SV(sp4-el): 45.4 ml LVLd ap4: 7.9 cm EDV(MOD-sp4): 84.5 ml EDV(sp4-el): 84.9 ml LVAs ap4: 17.1 cm2 LVLs ap4: 6.3 cm ESV(MOD-sp4): 39.6 ml ESV(sp4-el): 39.4 ml EF(MOD-sp4): 53.1 % EF(sp4-el): 53.5 % LA A4 area: 14.1 cm2 RA A4 area: 16.1 cm2 ECHO/Echo, Limited Study Interpretation Summary Limited study The estimated ejection fraction is 60 %. Ordering Physician: Magdiel Redding Referring Physician: Magdiel Redding Performed By: Sade Coffman RCS
== END | disposition home or self-care (01) ==
PROVIDERS: PCP Family Medicine; Referring Provider Internal Medicine Hematology & Oncology; Visit Provider Internal Medicine Hematology & Oncology
DX: Z51.81 Encounter for therapeutic drug level monitoring (principal); C50.919 Malignant neoplasm of unspecified site of unspecified female breast; Z79.899 Other long term (current) drug therapy
CPT/HCPCS: 93308

== ENCOUNTER → 2024-05-04 | Outpatient (CLI) | payer SELFPAY ==
--- NOTE | 2024-05-04 10:30 | MRI_ITS ---
STUDY: BILATERAL BREAST MR WITHOUT AND WITH CONTRAST REASON FOR EXAM: Female, 54 years old. Breast cancer. Assess treatment response. TECHNIQUE: Multi-sequence multi-echo imaging of both breasts was performed with a dedicated breast coil. T1-weighted and T2-weighted images were performed before the administration of contrast. T1-weighted images were also performed after the intravenous administration of 22 cc of Clariscan contrast. COMPARISON: Prior breast MRI studies dated October 08, 2023 and July 02, 2023. Ultrasound of the right breast dated June 14, 2020. FINDINGS: RIGHT BREAST: Scattered fibroglandular densities with moderate diffuse background enhancement. Areas of non-mass enhancement at the 12:00 position of the right breast has resolved. No focal masses or areas of consolidative non-mass enhancement are present on the study now. LEFT BREAST: Scattered fibroglandular densities with minimal background enhancement. No abnormal enhancing masses or areas of non-mass enhancement in the left breast. No enlarged or abnormal lymph nodes. No abnormality in the visualized regions of the chest or liver. MRI/Breast Bilateral W/O and W IMPRESSION: Resolution of non-mass enhancement in the right breast with now diffuse moderate background enhancement in the right breast and mild background enhancement in left breast. No other abnormality. CATEGORY: BIRADS Category 6: Known Biopsy-Proven Malignancy - Appropriate Action Should Be Taken. A letter regarding these results will be sent to the patient by the facility within 30 days. Electronically Signed: Abdiel Lawrence MD at 19:35 EDT ,
[2024-05-04] MEDS: 0.9 % NaCl (Sterile) Posiflush 10 mL IV (11:45)
== END | disposition home or self-care (01) ==
PROVIDERS: PCP Family Medicine; Referring Provider Internal Medicine Hematology & Oncology; Visit Provider Internal Medicine Hematology & Oncology
DX: C50.811 Malignant neoplasm of overlapping sites of right female breast (principal); C79.51 Secondary malignant neoplasm of bone; Z17.0 Estrogen receptor positive status [ER+]
CPT/HCPCS: 77049; A9575; A4216; C8908

== ENCOUNTER → 2025-05-28 | Outpatient (CLI) | payer SELFPAY ==
--- NOTE | 2025-05-28 13:29 | MRI_ITS ---
PROCEDURE: MRI/Breast Bilateral W/O and W
== END | disposition home or self-care (01) ==
LOC: OPMRI 13:19
PROVIDERS: PCP Family Medicine
DX: C50.811 Malignant neoplasm of overlapping sites of right female breast (principal); C79.51 Secondary malignant neoplasm of bone; Z17.0 Estrogen receptor positive status [ER+]; Z17.31 Human epidermal growth factor receptor 2 positive status
CPT/HCPCS: 77049; A9575; A4216; C8908